=== PATIENT | female | born 1935 | race Caucasian/White ===

== ENCOUNTER 2021-09-19 11:01 | Emergency (ER) | payer MEDICAID, OTHER ==
[~2021-09-19] VITALS: Ht 154.9 cm; Wt 47.0 kg
[2021-09-19 12:20] LABS: HEMATOCRIT. 34.8 % (36.0-48.0); HEMOGLOBIN. 11.8 g/dL (12.0-16.0); MEAN CORPUSCULAR HEMOGLOBIN 31.1 pg (28.0-32.0); MEAN CORPUSCULAR VOLUME 91.4 fL (81.0-99.0); MEAN PLATELET VOLUME 7.6 fl (7.4-10.4); PLATELET 238 x1000/uL (130-400); RED BLOOD CELL COUNT 3.81 mill/uL (4.2-5.4); RED CELL DISTRIBUTION WIDTH 12.9 % (11.6-14.6)
[2021-09-19 12:35] LABS: CHLORIDE 97 mEq/L (98-107)
[2021-09-19 12:49] LABS: PLATELET ESTIMATE NORMAL
[2021-09-19] MEDS ORDERED: SODIUM CHLORIDE 0.9% 500 ML IV ONE (14:00)
[2021-09-19 18:30] VITALS: BP 163/66
== END 2021-09-19 18:53 | disposition short-term general hospital (02) ==
LOC: ER 11:18
DX: R55 Syncope and collapse (principal); I10 Essential (primary) hypertension; R00.0 Tachycardia, unspecified
CPT/HCPCS: 36415; 71045; 80053; 83880; 84484; 85025; 93005; 96360; 96361; 99285; J7040